=== PATIENT | male | born 1940 | race Caucasian/White ===

== ENCOUNTER → 2017-05-24 | Outpatient (CLI) | payer OTHER ==
[~2017-05-24] VITALS: Ht 180.3 cm; Wt 120.2 kg
[~2017-05-24] MED LIST: AMARYL4 MG PO; APAP650 PO; HYDROCODONE-APA1 TA1 PO; LISINOPRIL20 MG PO; PIOGLITAZONE15 MG
--- NOTE | ~2017-05-24 | HPC ---
[facility] [place] [address] PAIN MANAGEMENT CONSULTATION Name: MANDI NIETO Room #: REG [facility].#: [id number] Admission: 05/24/17 Attend Phys: Maryann Martin MD Discharge: Date of : 36 Report #: [id number] THIS REPORT FOR: //name// CC: Rubina Martin DATE OF SERVICE: 05/24/2017 DATE OF SERVICE: 05/24/2017. CHIEF COMPLAINT: Pain in the back with numbness and pain down his lower front of the legs. HISTORY OF PRESENT ILLNESS: The patient is a 76-year-old gentleman who has been referred to the pain clinic for evaluation. The patient has noticed pain and discomfort in the anterior portion of his calves. He notes that prolonged standing for more than about 10-15 minutes, prolonged walking can all cause pain and discomfort in his legs. These require that he stop and sit for a few minutes. After resting for about 5 minutes, he is able to get up and continue walking. He notes that if he goes shopping that he holds on to the shopping cart. He describes his discomfort as continuous, burning, intermittent and sharp. He rates it as a 6/6 on most days. This does decrease his activity level. He has not had back surgery. He was told that he had had some narrowing in his back. He has come to the pain clinic for evaluation and treatment. ALLERGIES: No known drug allergies. MEDICATIONS: Hydrocodone 7.5 one p.o. q.6 hours p.r.n., takes 1-2 tablets a week, Tylenol Arthritis 650 mg b.i.d., Amaryl 4 mg daily, Actos 15 mg daily, and lisinopril 20 mg daily. PAST MEDICAL HISTORY: Diabetes; hypertension; chronic back pain with numbness in both ankles, shins and both feet, not involving his toes; kidney disease; joint disease/arthritis; BPH; diverticulosis; history of tobacco use; and dyslipidemia. PAST SURGICAL HISTORY: Bilateral knee replacements January 2013 and November 2015, vasectomy, cystoscopy, and bilateral cataracts in October 2010. SOCIAL HISTORY: He is retired. He has not worked in 13 years. Denies use of tobacco at this juncture. Denies use of alcoholic beverages. REVIEW OF SYSTEMS: Review of systems questionnaire in the chart, 14 points, indicates generally good health, frequent urination, awakens at night to urinate, numbness and tingling sensation as described in HPI, and diabetes. 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 Note that a similar clinical and electrodiagnostic picture may also be seen with chronic, multilevel lumbosacral spinal stenosis. The patient does sound like he may have symptoms of neurogenic claudication which would indicate spinal stenosis is present. MRI dated 05/22/2017, indicates: 1. L3-L4 circumferential disk bulge in conjunction with facet and ligament hypertrophy as well as anterior buckling of the ligamentum flavum anteriorly on the left suggests result in compression of the thecal sac. 2. Moderate to severe central canal stenosis and bilateral foraminal narrowing. 3. Diffuse disk bulge and more focal central disk protrusion as well as lateral and foraminal protrusion in conjunction with facet and ligamentous hypertrophy cause marked severe central canal stenosis with thecal sac effacement. 4. Left greater than right foraminal narrowing. 5. L4-L5 mild osteophyte complex and facet hypertrophy with partial fusion. 6. Mild foraminal and lateral recess narrowing, left greater than right. 7. L5-S1 disk bulge osteophyte complex eccentric to the right with facet hypertrophy and central protrusion thecal sac as well as right greater than left foraminal narrowing. PHYSICAL EXAMINATION: VITAL SIGNS: Blood pressure 130/58, pulse 62, respiratory rate is 16, room air saturation 95%. Height 5 feet 11 inches, weight 120 kilograms. BMI is 37.0. EXTREMITIES: The patient has pain and discomfort in the anterior calf area with pain in his feet. IMPRESSION: 1. Degenerative disk disease and facet arthropathy with spinal stenosis, most severe at L3-L4. 2. Diabetes. 3. Hypertension. RECOMMENDATIONS: We discussed treatment options with the patient. His MRI was reviewed. A model of the lumbar spine was used to indicate the area of pathology. The patient states that he understands. Risks and benefits of an epidural steroid injection were reviewed. Possible complications of the procedure were reviewed, and the possibility of infection, increased muscle soreness, headache, bleeding, nerve irritation/trauma, and spinal headache were mentioned as possible complications, but not limited to these. The patient elects to proceed. PROCEDURE NOTE: The patient was placed in the prone position. Fluoroscopy was used to identify the L3-L4 interspace. This area had been sterilely prepped [address] [address] PAIN MANAGEMENT CONSULTATION Name: MANDI NIETO Room #: REG [facility]#: [id number] Admission: 05/24/17 Attend Phys: Maryann Martin MD Discharge: Date of : 36 Report #: [id number] with Betadine and infiltrated with 0.25% bupivacaine. A total of 80 mg Depo-Medrol, 40 mg triamcinolone and 2 mL of 0.25% bupivacaine was injected. Total fluoroscopy time was 13 seconds. The patient's pain decreased to 0 down from 6 at the time of departure. He will call us if he has any problems with his medications. We would like to thank you for letting us participate in his care. We hope he continues to improve. By: 1631 2045 Maryann Martin MD /nt
[2017-05-24 11:12] VITALS: BP 130/58
== END | disposition home or self-care (01) ==
LOC: PAIN 08:28
DX: M54.16 Radiculopathy, lumbar region (principal); M48.06 Spinal stenosis, lumbar region; E11.22 Type 2 diabetes mellitus with diabetic chronic kidney disease; I12.9 Hypertensive chronic kidney disease with stage 1 through stage 4 chronic kidney disease, or unspecified chronic kidney disease; N18.9 Chronic kidney disease, unspecified; N40.0 Benign prostatic hyperplasia without lower urinary tract symptoms; E78.5 Hyperlipidemia, unspecified; Z87.891 Personal history of nicotine dependence; Z98.890 Other specified postprocedural states

== ENCOUNTER → 2017-07-05 | Outpatient (CLI) | payer OTHER ==
[~2017-07-05] VITALS: Ht 180.3 cm; Wt 123.5 kg
--- NOTE | ~2017-07-05 | HPC ---
[facility] [address] [place] [address] PAIN MANAGEMENT CONSULTATION Name: MANDI NIETO [id number] Admission: 07/05/17 Attend Phys: Maryann Martin MD Discharge: Date of : 36 Report #: [id number] THIS REPORT FOR: //name// CC: Rubina Martin DATE OF SERVICE: 07/05/2017 FOLLOWUP COMPLAINT: Pain in the low back and pain down into the front of the calves on both sides. FOLLOWUP HISTORY: The patient is a 76-year-old gentleman who has been seen in the pain clinic because of lumbar radiculopathy. He has undergone epidural steroid injections. He continues to have pain and discomfort in the low back area with pain radiating down into the L3-L4 dermatomes front of his legs bilaterally. He would like to proceed with another epidural steroid injection. He has had no complication from the previous injections and feels that the pain continues to be problematic when walking with radiation down into his legs. PHYSICAL EXAMINATION: Blood pressure 142/76, pulse 66, respiratory rate 18, room air saturation 96%, height 5 feet 11 inches tall, weight 272 pounds, and BMI is 38. The patient has not fallen since we saw him last. He continues to have pain and discomfort with walking in his lower extremities with pain increasing to an 8 while walking. IMPRESSION: 1. Neurogenic claudication with spinal stenosis. 2. L3-L4 circumferential bulge of the disk in conjunction with facet and ligamentum hypertrophy as well as anterior buckling of the ligamentum flavum anteriorly on the left suggest compression of the thecal sac. 3. Zwiliotl-fa-gvugts central canal stenosis and bilateral foraminal narrowing. 4. Diffuse disk bulge and more focal central disk protrusion as well as lateral and foraminal protrusion in conjunction with facet and ligamentum hypertrophy caused marked severe central canal stenosis and thecal sac effacement. 5. Left and right foraminal narrowing. 6. L4-L5 mild osteophyte complex and facet hypertrophy with partial fusion. Mild foraminal and lateral recess narrowing, left greater than right. 7. L5-S1 disk bulge osteophyte complex eccentric to the right with facet hypertrophy and central protrusion and thecal sac causing right greater than left foraminal narrowing. 8. Diabetes. 9. Hypertension. RECOMMENDATIONS: We discussed the treatment options with the patient. Risks and benefits of an epidural steroid injection were again reviewed. Possible [address] [address] PAIN MANAGEMENT CONSULTATION Name: MANDI NIETO [id number] Admission: 07/05/17 Attend Phys: Maryann Martin MD Discharge: Date of : 36 Report #: [id number] complications were discussed and the patient elects to proceed. PROCEDURE NOTE: The patient was placed in the prone position. Fluoroscopy was used to identify the L3/L4 interspace. This area had been sterilely prepped with Betadine and infiltrated with 0.25% bupivacaine. Total of 80 mg Depo-Medrol, 40 mg triamcinolone was injected. The patient's pain decreased from 8 while walking to 3. He will follow up in the future as needed. We would like to thank you for letting us participate in his care. We hope he continues to improve. <ELECTRONICALLY SIGNED> By: Maryann Martin MD 07/10/17 0845 [id number] Maryann Martin MD /nt
[2017-07-05 10:31] VITALS: BP 142/76
== END | disposition home or self-care (01) ==
LOC: PAIN 07:17
DX: M51.26 Other intervertebral disc displacement, lumbar region (principal); E11.9 Type 2 diabetes mellitus without complications; I10 Essential (primary) hypertension; Z98.890 Other specified postprocedural states